=== PATIENT | female | born 1985 | race Two or more races ===

== ENCOUNTER 2019-11-05 10:31 | Emergency (ER) | payer OTHER ==
[~2019-11-05] VITALS: Ht 157.5 cm; Wt 57.6 kg
[2019-11-05] MEDS ORDERED: OB COMPLETE ON1 EACH (11:11)
== END 2019-11-05 19:40 | disposition home or self-care (01) ==
LOC: ER 10:31
DX: O46.8X1 Other antepartum hemorrhage, first trimester (principal); O23.31 Infections of other parts of urinary tract in pregnancy, first trimester

== ENCOUNTER 2020-04-18 23:38 | Inpatient (IN) | payer OTHER ==
[~2020-04-18] VITALS: Ht 157.5 cm; Wt 1.4 kg
[~2020-04-18 23:38] MED LIST: OB COMPLETE ON1 EACH
[2020-04-19] MEDS ORDERED: TYLENOL325 MG PO (00:15)
== END 2020-04-24 14:14 | DRG 788 ==
LOC: LDR 23:38 → SURG-SUITE 04-21 13:02
PROVIDERS: ADMIT Specialist; ATTEND Specialist
PROC: 4A1HXCZ Monitoring of Products of Conception, Cardiac Rate, External Approach (ICD-10-PCS; 2020-04-18)
PROC: BY4FZZZ Ultrasonography of Third Trimester, Single Fetus (ICD-10-PCS; 2020-04-19)
PROC: 10D00Z1 Extraction of Products of Conception, Low, Open Approach (ICD-10-PCS; principal; 2020-04-21 09:15)
DX: O14.14 Severe pre-eclampsia complicating childbirth (principal); O60.14X0 Preterm labor third trimester with preterm delivery third trimester, not applicable or unspecified; O36.5930 Maternal care for other known or suspected poor fetal growth, third trimester, not applicable or unspecified; Z3A.34 34 weeks gestation of pregnancy; Z37.0 Single live birth